=== PATIENT | female | born 1970 | race Caucasian/White ===

== ENCOUNTER 2021-11-17 04:18 | Day surgery (SDC) | payer OTHER ==
[2021-11-13 12:25] VITALS: BMI 28.9
[2021-11-17] MEDS ORDERED: oxyCODONE HCL 5 MG TABLET PO PRN (08:21)
[2021-11-17] MEDS ORDERED: PROMETHAZINE HCL 25 MG/1 ML VIAL IVPB PRN (08:21)
[2021-11-17] MEDS ORDERED: ONDANSETRON 4 MG/2 ML VIAL IVPUSH PRN ×2 (08:21→13:37)
[2021-11-17] MEDS ORDERED: LACTATED RINGERS SOLUTION 1,000 ML IV SCH ×2 (08:30→13:45)
[2021-11-17] MEDS ORDERED: DESMOPRESSIN ACETATE 4 MCG/ML AMP IVPB ONE (09:17)
[2021-11-17] MEDS ORDERED: DESMOPRESSIN ACETATE IVPB ONE (09:30)
[2021-11-17] MEDS ORDERED: SODIUM CHLORIDE IVPB ONE (09:30)
[2021-11-17] MEDS ORDERED: LIDOCAINE HCL 1%, 10 MG/ML (20ML VIAL) ONE ×2 (10:03→12:59)
[2021-11-17] MEDS ORDERED: PROPOFOL 20 ML ONE ×2 (11:13)
[2021-11-17] MEDS ORDERED: ONDANSETRON 4 MG/2 ML VIAL ONE (11:13)
[2021-11-17] MEDS ORDERED: LIDOCAINE HCL/PF 2% SDV 5ML VIAL ONE ×2 (11:13→11:16)
[2021-11-17] MEDS ORDERED: DEXAMETHASONE SOD PHOSPHATE 4 MG/1 ML VIAL ONE (11:13)
[2021-11-17] MEDS ORDERED: MIDAZOLAM HCL 2 MG/2 ML SINGLE DOSE VIAL ONE ×2 (11:14)
[2021-11-17] MEDS ORDERED: PHENYLEPHRINE HCL 10 MG/1 ML SINGLE DOSE VIAL ONE (11:20)
[2021-11-17] MEDS ORDERED: SUCCINYLCHOLINE CHLORIDE 200 MG/10 ML SYRINGE ONE (11:20)
[2021-11-17] MEDS ORDERED: KETOROLAC TROMETHAMINE 30 MG/1 ML VIAL ONE ×2 (12:06→13:04)
[2021-11-17] MEDS ORDERED: ceFAZolin SODIUM 1 GM VIAL ONE ×2 (12:06→12:38)
[2021-11-17] MEDS ORDERED: GLYCOPYRROLATE 0.2 MG/1 ML VIAL ONE (12:33)
[2021-11-17] MEDS ORDERED: SODIUM CHLORIDE 0.9% P/F 10 ML VIAL IJ ONE (12:38)
[2021-11-17] MEDS ORDERED: ceFAZolin SODIUM 1 GM VIAL IVPB ONE (12:40)
[2021-11-17] MEDS ORDERED: LIDOCAINE HCL 1%, 10 MG/ML (20ML VIAL) IJ ONE (12:51)
[2021-11-17] MEDS ORDERED: LIDOCAINE HCL 1% PRESERVATIVE FREE - 30ML VIAL IJ ONE (12:51)
[2021-11-17] MEDS ORDERED: METOPROLOL TARTRATE 5 MG/5 ML VIAL ONE (13:15)
[2021-11-17] MEDS ORDERED: ALBUTEROL SO4 HFA INHALER IH ONE (13:45)
[2021-11-17 16:37] VITALS: BP 134/80; PULSE 59; TEMP 97.1
== END 2021-11-17 17:07 | disposition home or self-care (01) ==
LOC: JASU-SURG 04:18
PROVIDERS: ATTEND Surgery
PROC: 0HBT0ZZ Excision of Right Breast, Open Approach (ICD-10-PCS; principal; 2021-11-17 11:00)
DX: D24.1 Benign neoplasm of right breast (principal)
CPT/HCPCS: 19281; 76098-TC-FY; 88307-TC; 94760; J2597

== ENCOUNTER 2024-07-31 04:29 | Day surgery (SDC) | payer OTHER ==
[2024-07-27 12:42] VITALS: BMI 28.3
[2024-07-31] MEDS ORDERED: PROPOFOL 20 ML ONE (11:41)
[2024-07-31] MEDS ORDERED: MIDAZOLAM HCL 2 MG/2 ML SINGLE DOSE VIAL ONE (11:41)
[2024-07-31] MEDS ORDERED: LIDOCAINE HCL/PF 2% SDV 5ML VIAL ONE (11:41)
[2024-07-31] MEDS ORDERED: DEXAMETHASONE SOD PHOSPHATE 4 MG/1 ML VIAL ONE (12:06)
[2024-07-31] MEDS ORDERED: ceFAZolin SODIUM 1 GM VIAL ONE (12:06)
[2024-07-31] MEDS ORDERED: KETOROLAC TROMETHAMINE 30 MG/1 ML VIAL ONE (12:10)
[2024-07-31] MEDS ORDERED: ONDANSETRON 4 MG/2 ML VIAL ONE (12:10)
[2024-07-31] MEDS: ceFAZolin SODIUM 1 GM VIAL IVPB ONE (12:10)
[2024-07-31] MEDS: LIDOCAINE HCL 1%, 10 MG/ML (20ML VIAL) NR ONE ×3 (12:28)
[2024-07-31] MEDS ORDERED: PROMETHAZINE HCL 25 MG/1 ML VIAL IVPB PRN (13:12)
[2024-07-31] MEDS ORDERED: ONDANSETRON 4 MG/2 ML VIAL IVPUSH PRN (13:12)
[2024-07-31] MEDS ORDERED: oxyCODONE HCL 5 MG TABLET PO PRN ×2 (13:12)
[2024-07-31] MEDS ORDERED: LACTATED RINGERS SOLUTION 1,000 ML IV SCH (13:15)
[2024-07-31] MEDS ORDERED: ACETAMINOPHEN INJECTION 100 ML ONE (13:48)
[2024-07-31] MEDS: ACETAMINOPHEN 1000 MG/100 ML BAG IVPB ONE (13:49)
[2024-07-31 15:32] VITALS: BP 113/71; PULSE 76; RESP 16; TEMP 97.1
== END 2024-07-31 15:15 | disposition home or self-care (01) ==
LOC: JASU-SURG 04:29
PROVIDERS: ATTEND Surgery
PROC: 0HBU0ZZ Excision of Left Breast, Open Approach (ICD-10-PCS; principal; 2024-07-31 11:00)
DX: D05.12 Intraductal carcinoma in situ of left breast (principal)
CPT/HCPCS: 19281; 76098-TC-FY; 88307-TC; 94760; J0131